=== PATIENT | female | born 1950 | race Caucasian/White ===

== ENCOUNTER 2017-06-28 07:58 | Day surgery (SDC) | payer MEDICARE, OTHER ==
[~2017-06-28] VITALS: Ht 170.2 cm; Wt 81.8 kg
[2017-06-28] MEDS ORDERED: IOHEXOL 350 MG/ML 50 ML BTL (for RAD DIAG) OTHER ONE (07:59)
[2017-06-28 08:13] VITALS: BP 148/94; PULSE 94; RESP 20; TEMP 99; O2SAT 97
[2017-06-28] MEDS ORDERED: SODIUM CHLORIDE 0.9% 1000 ML IV SCH (08:15)
[2017-06-28] MEDS ORDERED: ASPI-516 CHEW (08:28)
[2017-06-28] MEDS ORDERED: SEVEL800 PO (08:28)
[2017-06-28] MEDS ORDERED: DOXA1TAB36 PO (08:28)
[2017-06-28] MEDS ORDERED: POLY17S PO (08:28)
[2017-06-28] MEDS ORDERED: REST15CA PO (08:28)
[2017-06-28] MEDS ORDERED: PANT40TA3 PO (08:28)
[2017-06-28] MEDS ORDERED: TRAM50TA PO (08:28)
[2017-06-28] MEDS ORDERED: NIFE1TAB PO (08:28)
[2017-06-28] MEDS ORDERED: SODI650T PO (08:28)
[2017-06-28] MEDS ORDERED: NEPHTAB3 PO (08:28)
[2017-06-28] MEDS ORDERED: HYDR-3133 PO (08:28)
[2017-06-28] MEDS ORDERED: CHOL10008 PO (08:28)
[2017-06-28] MEDS ORDERED: ACET650S (08:28)
[2017-06-28] MEDS ORDERED: HYDR-3801 PO (08:28)
--- NOTE | 2017-06-28 09:10 | RADRPT ---
EXAM DATE/TIME: 06/28/2017 08:40 [facility] COMPARISON: No previous studies available for comparison. INDICATIONS : Fell out of bed and hit head. Nausea. RADIATION DOSE: 34.16 CTDIvol (mGy) MEDICAL HISTORY : None SURGICAL HISTORY : None. ENCOUNTER: Initial ACUITY: 1 day PAIN SCALE: 4/10 LOCATION: Right cranial TECHNIQUE: Multiple contiguous axial images were obtained of the head. Using automated exposure control and adj ustment of the mA and/or kV according to patient size, radiation dose was kept as low as reasonably a chievable to obtain optimal diagnostic quality images. DICOM format image data is available electro nically for review and comparison. FINDINGS: CEREBRUM: The ventricles are normal for age. Old, 2 cm lacunar type infarct in the anterior aspect of the righ t external capsule. No evidence of midline shift, mass lesion, hemorrhage or acute infarction. No ex tra-axial fluid collections are seen. POSTERIOR FOSSA: The cerebellum and brainstem are intact. The 4th ventricle is midline. The cerebellopontine angle i s unremarkable. EXTRACRANIAL: The visualized portion of the orbits is intact. Mucous retention cysts in maxillary antra bilaterally . SKULL: The calvaria is intact. No evidence of skull fracture. CONCLUSION: 1. Chronic changes with 2 cm old lacunar type infarct in the anterior aspect of the right external ca psule. 2. Mucous retention cysts in the maxillary antra bilaterally characteristic of chronic sinusitis. Filemon Nieves MD on June 28, 2017 at 9:06 Board Certified Radiologist. This report was verified electronically.
[2017-06-28] MEDS ORDERED: Hemodialysis Vas Access Cath PRN NS Lock Flush IV FLUSH (09:30)
[2017-06-28] MEDS ORDERED: Hemodialysis Vas Acc Cath PRN Heparin 1000 unit/ml Flush IV FLUSH (09:30)
[2017-06-28] MEDS ORDERED: MIDAZOLAM HCL 2 MG/2 ML VIAL ONE (09:38)
[2017-06-28 09:42] LABS: BICARBONATE 26.2 MEQ/L (21.0-32.0); POTASSIUM 4.2 MEQ/L (3.5-5.1)
[2017-06-28] MEDS ORDERED: ALTEPLASE RECOMBINANT 2 MG VIAL ONE (10:00)
[2017-06-28 10:45] VITALS: BP 148/55; PULSE 78; RESP 18; TEMP 98.4; O2SAT 97
--- NOTE | 2017-06-28 10:45 | PD.RAD ---
Post Procedure Progress Note Pre Procedure Diagnosis: (1) ESRD on peritoneal dialysis (2) PD catheter dysfunction Post Procedure Diagnosis: (1) ESRD on peritoneal dialysis (2) PD catheter dysfunction Procedure Date: Jun 28, 2017 Supervising Radiologist: Filemon Nieves Proceduralist/Assist: Chela Castillo, RT(R)(CV), Emerald Duke RT(R) Anesthesia: Local, Analgesia, Conscious Sedation Plan of Activity Patient to Unit: R[facility]U Patient Condition: Good See PACS Report for procedural detail/treatment Drainage Procedure Procedure 1 Imaging Guidance: Fluoroscopy Procedure Type: Peritoneal Catheter Tunneled Procedure: Reposition, Evaluation Findings: Fibrin plug in catheter. Pocket around loop fenestrated with a stiff glide wire. Locked with Filemon Yanes MD Jun 28, 2017 10:45
[2017-06-28 11:00] VITALS: BP 160/87; PULSE 77; RESP 18; O2SAT 94
[2017-06-28 11:30] VITALS: BP 163/88; PULSE 80; RESP 18; O2SAT 94
[2017-06-28 12:00] VITALS: BP 176/91; PULSE 81; RESP 18; O2SAT 97
[2017-06-28 12:30] VITALS: BP 120/70; PULSE 60; RESP 18; O2SAT 94
--- NOTE | 2017-06-28 15:10 | RADRPT ---
EXAM DATE/TIME: 06/28/2017 09:36 [facility] COMPARISON: No previous studies available for comparison. INDICATIONS : Patient with malfunctioning peritoneal dialysis catheter. MEDICAL HISTORY : !. ESRD 2. HTN 3. A fib 4. anemia SURGICAL HISTORY : 1. PD cath 2. perm cath 3. c- section 4. cholesectomy ENCOUNTER: Initial ACUITY: 1 month PAIN SCORE: 0/10 FLUORO TIME: 4.8 minutes IMAGE SERIES: 2 SEDATION TIME: 30minutes CONTRAST: 20 cc Omnipaque (iohexol) 350 PD cath MEDICATION(S): 1.) 3 mg midazolam (Versed) IV 2.) 150 mcg fentanyl (Sublimaze) IV 3.) 2 mg TPA locked in PD cath PROCEDURE : 1. PD catheter evaluation and manipulation. The risks, benefits and alternatives to the procedure were explained and verbal and written consent w as obtained. The site was prepped in sterile fashion. Full sterile technique was used, including ca p, mask, sterile gloves and gown and a large sterile sheet. Hand hygiene and 2% chlorhexidine and/or betadine/alcohol prep was utilized per protocol for cutaneous antisepsis. The skin and subcutaneous tissues were infiltrated with local anesthetic solution. The hub of the PD catheter was disassembled. Contrast injection showed the loop of the PD catheter to be positioned in the deep pelvis. Contrast exited the side ports of the catheter but could not be se en to the distal tip. Contrast material. To flow freely from the proximal portion of the catheter. A series of wires were then passed through the catheter through to the tip. Patient did experience so me discomfort as the wire exited the tip of the catheter. The wire was passed repeatedly through the tip of the catheter in an attempt to reposition a loop and break up local adhesions. After one of the passes, a long fibrin filament was pulled from the catheter lumen. This improved the backflow throug h the catheter. Catheter was then locked with 2 mg of TPA CONCLUSION: Evaluation and manipulation of the PD catheter as above. Filemon Nieves MD on June 28, 2017 at 15:03 Board Certified Radiologist. This report was verified electronically.
== END 2017-06-28 12:15 | disposition home or self-care (01) ==
LOC: HROP 07:58 → HRIP 08:01 → HROP 12:15
DX: T85.611A Breakdown (mechanical) of intraperitoneal dialysis catheter, initial encounter (principal); I12.0 Hypertensive chronic kidney disease with stage 5 chronic kidney disease or end stage renal disease; N18.6 End stage renal disease; I48.91 Unspecified atrial fibrillation; D64.9 Anemia, unspecified; W06.XXXA Fall from bed, initial encounter; Z99.2 Dependence on renal dialysis; Z86.73 Personal history of transient ischemic attack (TIA), and cerebral infarction without residual deficits
CPT/HCPCS: 49400; 49999; 70450; 74190; 80048; 99152; 99153; C1750; C1769; J1644; J2250; J2997; J3010; Q9967

== ENCOUNTER 2017-07-12 08:08 | Day surgery (SDC) | payer MEDICARE, OTHER ==
[~2017-07-12] VITALS: Ht 170.2 cm; Wt 77.7 kg
[2017-07-12] VITALS (7 sets, daily range): BP systolic 128–193; BP diastolic 75–101; PULSE 50–68; RESP 16–20; TEMP 97.5–98.5; O2SAT 94–95
[~2017-07-12 08:08] MED LIST: ACET650S; ASPI-516 CHEW; CHOL10008 PO; DOXA1TAB36 PO; HYDR-3133 PO; HYDR-3801 PO; NEPHTAB3 PO; NIFE1TAB PO; PANT40TA3 PO; POLY17S PO; REST15CA PO; SEVEL800 PO; SODI650T PO; TRAM50TA PO
[2017-07-12] MEDS: SODIUM CHLORIDE 0.9% 1000 ML IV SCH ×2 (09:00→13:44)
[2017-07-12] MEDS ORDERED: CLON0.2T PO (09:11)
[2017-07-12] MEDS ORDERED: MIDAZOLAM HCL 2 MG/2 ML VIAL ONE (09:49)
--- NOTE | 2017-07-12 10:27 | PD.RAD ---
Post Procedure Progress Note Pre Procedure Diagnosis: (1) PD catheter dysfunction (2) ESRD on peritoneal dialysis Post Procedure Diagnosis: (1) PD catheter dysfunction (2) ESRD on peritoneal dialysis Procedure Date: Jul 12, 2017 Supervising Radiologist: Mark Garcia Estimated blood loss: none Anesthesia: Conscious Sedation Plan of Activity Patient to Unit: ROPU Patient Condition: Good Additional Comments: PD catheter repositioned to the right side of the pelvis. Catheter drained approx 250 cc of fluid. Full dictated report to follow See PACS Report for procedural detail/treatment Mark Garcia MD Jul 12, 2017 10:27
[2017-07-12] MEDS ORDERED: HEPARIN SODIUM - IV 10,000 UNITS/10 ML VIAL ONE (12:26)
[2017-07-12] MEDS ORDERED: Hemodialysis Vas Access Cath PRN NS Lock Flush IV FLUSH (14:00)
[2017-07-12] MEDS ORDERED: Hemodialysis Vas Acc Cath PRN Heparin 1000 unit/ml Flush IV FLUSH (14:00)
--- NOTE | 2017-07-12 17:49 | RADRPT ---
EXAM DATE/TIME: 07/12/2017 11:04 [facility] COMPARISON: PERITONEOGRAM, July 12, 2017, 0:00. INDICATIONS : Patient with a history of malfunctioning peritoneal dialysis catheter. MEDICAL HISTORY : ESRD HTN Afib Anemia SURGICAL HISTORY : PD cath Permcath Cholecystectomy ENCOUNTER: Subsequent ACUITY: 2 months PAIN SCORE: 2/10 LOCATION: Abdomen FLUORO TIME: 3.1 minutes IMAGE SERIES: 1 SEDATION TIME: 30minutes CONTRAST: 30 cc Omnipaque (iohexol) 350 MEDICATION(S): 1.) 2 mg midazolam (Versed) IV 2.) 100 mcg fentanyl (Sublimaze) IV PROCEDURE : 1. Repositioning the patient's Tenckhoff catheter. 2. Conscious sedation with continuous EKG and Oximetry monitoring. The risks, benefits and alternatives to the procedure were explained and verbal and written consent w as obtained. The site was prepped in sterile fashion. Full sterile technique was used, including ca p, mask, sterile gloves and gown and a large sterile sheet. Hand hygiene and 2% chlorhexidine prep w as utilized per protocol for cutaneous antisepsis with appropriate dry time for site. The patient's Tenckhoff catheter was accessed using sterile technique. A 0.035 Flex finder wire was advanced through the catheter. The catheter was repositioned from the left side the pelvis over to th e right side of pelvis without difficulty. Following this, the catheter flushed and aspirated normall y. A peritoneogram demonstrated free flow of contrast away from the catheter. There was approximately 100 cc of dialysate fluid which returned. Conscious sedation was performed with the prescribed dosages and duration as above in the presence of an independent trained radiology nurse to assist in the monitoring of the patient. EKG and oximetry remained stable throughout the procedure. CONCLUSION: 1. Successful repositioning of the patient's Tenckhoff catheter. Mark Garcia MD on July 12, 2017 at 17:45 Board Certified Radiologist. This report was verified electronically.
== END 2017-07-12 13:00 | disposition home or self-care (01) ==
LOC: HROP 08:08 → HRIP 08:12 → HROP 13:00
PROVIDERS: ATTEND Radiology Body Imaging
DX: T85.611A Breakdown (mechanical) of intraperitoneal dialysis catheter, initial encounter (principal); I12.0 Hypertensive chronic kidney disease with stage 5 chronic kidney disease or end stage renal disease; N18.6 End stage renal disease; I48.91 Unspecified atrial fibrillation; Z99.2 Dependence on renal dialysis
CPT/HCPCS: 49400; 74190; 99152; 99153; C1769; J1644; J2250; J3010; J7030